=== PATIENT | female | born 1995 | race Caucasian/White ===

== ENCOUNTER 2017-01-13 00:41 | Emergency (ER) | payer OTHER ==
[~2017-01-13] VITALS: Ht 167.6 cm; Wt 89.4 kg
[2017-01-13 00:45] VITALS: TEMP 36.6; Ht 167.6 cm; Wt 89.4 kg
[2017-01-13] MEDS ORDERED: TRAMADOL HCL 50 MG TAB PO STA (01:14)
[2017-01-13] MEDS ORDERED: AMOXICILLIN 250 MG CAP PO STA (01:14)
[2017-01-13] MEDS ORDERED: AMOX500C3 PO (01:17)
[2017-01-13] MEDS ORDERED: TRAM-10 PO (01:17)
--- NOTE | 2017-01-13 01:25 | EMERGENCY ROOM VISIT NOTE ---
History First contact with patient: 00:44 Chief Complaint: DENTAL PAIN Stated Complaint: TOOTH INFECTION, SOB, TINGLING FACE Nursing Triage Summary: pt reports "I was at [facility] recently and I am pretty sure I have an infected tooth. They gave me zofran because I have been throwing up my morning meds. I havent ate since tuesday." pt reports that she was not given anything for her tooth. History of Present Illness The patient is a 21 year old female who presents to the Emergency Room with complaints of dental pain for the past few days has not seen a dentist in quite sometime. Patient discussed pain as aching, ranging in severity 6 out of 10 worse with chewing better with rest. Occasionally radiates up to her ear and jaw line. Patient denies chest pain, fevers, facial swelling, sore throat, dysphagia, neck stiffness, IV drug abuse. Review of Systems See HPI for pertinent positives & negatives. A total of 10 systems reviewed and were otherwise negative. Past Medical/Surgical History Graves' disease, GERD Social History Smoking Status: Never Smoker Smokeless Tobacco Use: No Alcohol Use: none Drug Use: none Marital Status: in relationship Current/Historical Medications Scheduled Amoxicillin (Amoxil), 500 MG PO TID Scheduled PRN Tramadol (Ultram), 1 TAB PO Q4H PRN for Pain Physical Exam Vital Signs Date Time Temp Pulse Resp B/P (MAP) Pulse Ox O2 Delivery O2 Flow Rate FiO2 01/13/17 00:45 36.6 78 20 122/81 100 Room Air Physical Exam VITALS: Vitals are noted on the nurse's note and reviewed by myself. Vital signs stable. GENERAL: White female, in no acute distress, nondiaphoretic, well-developed well -nourished. SKIN: The skin was without rashes, erythema, edema, or bruising. There is no tenting of the skin. Capillary reflex less than 2 seconds. HEAD: Normocephalic atraumatic. EARS: External auditory canals clear, tympanic membranes pearly rodriguez without erythema or effusion bilaterally. EYES: Pupils equal round and reactive to light and accommodation. Conjunctivae without injection, sclerae without icterus. Extraocular movements intact. NOSE: Patent, turbinates without inflammation or discharge. No sinus tenderness. MOUTH: Mucous membranes moist. Pharynx without erythema or exudate. Uvula midline. Airway patent. Tongue does not deviate. No Zack angina Dental exam: Extensive plaque buildup, right lower first molar with extensive dental decay with no palpable abscess, overall dental hygiene fair NECK: Supple without nuchal rigidity. No lymphadenopathy. Cervical spine is nontender. No JVD. HEART: Regular rate and rhythm without murmurs gallops or rubs. LUNGS: Clear to auscultation bilaterally without wheezes, rales or rhonchi. No dullness to percussion. No retractions or accessory muscle use. ABDOMEN: Positive bowel sounds x 4. Normal tympanic percussion. Soft, nontender, without masses or organomegaly. Gorman sign negative. No guarding or rebound tenderness. MUSCULOSKELETAL: No muscle atrophy, erythema, or edema noted. NEURO: Patient was alert and oriented to person place and time. Normal sensation to light and sharp touch. No focal neurological deficits. Medical Decision & Procedures ED Course Prior records reviewed and summarized as above. Triage Nursing notes reviewed. Additional history obtained from girlfriend The patient's history was concerning for dental pain Differential diagnosis: Etiologies such as cellulitis, abscess, Zack angina, cavity, gingivitis, as well as others were entertained.. Physical examination: The physical examination was consistent with dental pain and dental caries ER treatment provided: Amoxicillin, Ultram On reassessment the patient felt better. Diagnostics interpreted by me: Deferred This appears to be isolated dental pain and dental caries. Patient was counseled on proper dental hygiene. She is strongly encouraged to see a dentist as soon as possible to consider care for her ongoing dental problems. She is advised to take medications as directed and to follow-up with the dentist or family care in a few days or here in the ER sooner for facial pain, fevers, neck stiffness, worsening signs or symptoms or as needed. Patient no signs of airway, or mass. No signs of Zack angina.. By the evaluation outlined above emergent etiologies such as abscess, Zack angina as well as others were deemed relatively unlikely. The pt informed about the findings as listed above. All questions were answered and pleased with the treatment. Return instructions were outlined and the patient was discharged in stable condition. Outpatient prescription management: Amoxicillin, Ultram Referral: The patient was referred dentist for follow-up in 2 to 3 days for a recheck of the current condition. Medical Decision As above [place] Drug Monitoring Program Search Results: patient reviewed within database, no issues identified Medication Reconcilliation Current Medication List: was personally reviewed by me Blood Pressure Screening Patient's blood pressure: Normal blood pressure Impression Primary Impression: Dental caries Additional Impression: Tooth pain with chewing Departure Information Dispostion Home / Self-Care Condition GOOD Prescriptions Tramadol (Ultram) 50 Mg Tab 1 TAB PO Q4H Y for Pain, #10 TAB For Initial Treatment Prov: María Loco PA-C 01/13/17 Amoxicillin (AMOXIL) 500 Mg Cap 500 MG PO TID for 10 Days, #30 CAP Prov: María Loco PA-C 01/13/17 Referrals No Doctor, Assigned (PCP) Forms HOME CARE DOCUMENTATION FORM, IMPORTANT VISIT INFORMATION Patient Instructions My [facility], ED Cavity Dental Problem Qualifiers
[2017-01-13 01:32] VITALS: BP 123/75; PULSE 78; O2SAT 100
[2017-01-14] MEDS ORDERED: PROP20TA67 PO (01:54)
[2017-01-14] MEDS ORDERED: METH10TA6 PO (01:57)
[2017-01-14] MEDS ORDERED: OMEP40CA41 PO (02:00)
[2017-01-14] MEDS ORDERED: MONT1TAB3 PO (02:01)
[2017-01-14] MEDS ORDERED: CLR10 PO (02:01)
[2017-01-14] MEDS ORDERED: ASTN NAE (02:02)
[2017-01-14] MEDS ORDERED: AZITTAB PO (17:13)
[2017-01-14] MEDS ORDERED: ONDA4TAB10 SL (17:13)
== END 2017-01-13 01:33 | disposition home or self-care (01) ==
LOC: C.EDB 00:44 → C.EDA 01:33
DX: K02.9 Dental caries, unspecified (principal); K08.89 Other specified disorders of teeth and supporting structures; K21.9 Gastro-esophageal reflux disease without esophagitis; E05.00 Thyrotoxicosis with diffuse goiter without thyrotoxic crisis or storm

== ENCOUNTER 2017-01-14 14:51 | Emergency (ER) | payer OTHER ==
[~2017-01-14] VITALS: Ht 167.6 cm; Wt 89.4 kg
[~2017-01-14 14:51] MED LIST: AMOX500C3 PO; ASTN NAE; CLR10 PO; METH10TA6 PO; MONT1TAB3 PO; OMEP40CA41 PO; PROP20TA67 PO; TRAM-10 PO
[2017-01-14 14:56] VITALS: TEMP 36.4; Ht 167.6 cm; Wt 89.4 kg
[2017-01-14] MEDS ORDERED: ONDANSETRON INJ 2 MG/ML 2 ML VIAL IV STA (15:45)
[2017-01-14] MEDS ORDERED: SODIUM CHLORIDE 0.9% 1000ML 1,000 ML IV STA (15:45)
[2017-01-14 16:29] LABS: BASO % 0.5 %; BASO ABS # 0.03 K/uL (0-0.2); COMPLETE YES; EOS % 2.7 %; HEMATOCRIT 41.5 % (37-47); IG% 0.2 %; LYMPH % 25.1 %; LYMPH ABS # 1.59 K/uL (1.2-3.4); MEAN CELL VOLUME 79.3 fL (80-100); MONO % 7.3 %; NEUT % 64.2 %; PLATELET COUNT 389 K/uL (130-400); RED BLOOD COUNT 5.23 M/uL (4.2-5.4); WHITE BLOOD COUNT 6.33 K/uL (4.8-10.8)
[2017-01-14 16:38] LABS: PARTIAL THROMBOPLASTIN RATIO 1.1; PROTHROMBIN TIME (PATIENT) 10.7 SECONDS (9.0-12.0)
--- NOTE | 2017-01-14 16:38 | DIAGNOSTIC IMAGING REPORT ---
SINUSES-MAXILLOFACIAL W/O CT DOSE: 549.39 mGy.cm HISTORY: Pain persistent head congestion TECHNIQUE: Multiaxial CT images of the paranasal sinuses were performed and reformatted in the coronal plane without the use of contrast. A dose lowering technique was utilized adhering to the principles of ALARA. COMPARISON: None. FINDINGS: The frontal sinuses are clear. Mild mucosal thickening right maxillary sinus. Soft tissue occlusion right ostiomeatal unit. Left maxillary sinus is clear. Left ostiomeatal unit is patent. Minimal mucosal thickening in the ethmoids. Sphenoid sinuses are clear. Moderate hyperplastic changes the nasal turbinates bilaterally. No evidence for bony destructive process. The orbital margins are intact. The mastoid air cells are clear. The 10th The nasal septum is midline. The orbits are unremarkable. IMPRESSION: 1. Mild mucosal thickening right maxillary sinus.. 2. Soft tissue occlusion right ostiomeatal unit. 3. Mild hypertrophic change of the nasal turbinates. The above report was generated using voice recognition software. It may contain grammatical, syntax or spelling errors. Electronically signed by: Bridger Manrique M.D. 01/14/2017 4:37 PM Dictated Date/Time: 01/14/2017 4:35 PM
[2017-01-14 16:47] LABS: BUN/CREATININE RATIO 8.6 (10-20); CALCIUM 9.3 mg/dl (8.5-10.1); CREATININE 0.66 mg/dl (0.60-1.20); POTASSIUM 3.5 mmol/L (3.5-5.1)
--- NOTE | 2017-01-14 16:50 | DIAGNOSTIC IMAGING REPORT ---
CHEST 2 VIEWS ROUTINE CLINICAL HISTORY: sob dyspnea COMPARISON STUDY: No previous studies for comparison. FINDINGS: The bones soft tissues and hemidiaphragms are normal. The cardiomediastinal silhouette is normal. The lungs are clear. The pulmonary vasculature is normal. IMPRESSION: Negative chest. The above report was generated using voice recognition software. It may contain grammatical, syntax or spelling errors. Electronically signed by: Bridger Manrique M.D. 01/14/2017 4:48 PM Dictated Date/Time: 01/14/2017 4:48 PM
[2017-01-14] MEDS ORDERED: AZITTAB PO (17:13)
[2017-01-14] MEDS ORDERED: ONDA4TAB10 SL (17:13)
--- NOTE | 2017-01-14 17:15 | EMERGENCY ROOM VISIT NOTE ---
History First contact with patient: 15:26 Chief Complaint: DIZZY Stated Complaint: DIZZY,WALTERS,SOB,NAUSEOUS,MOUTH HURTS Nursing Triage Summary: Patient c/o SOB, N/V, and dizziness. Patient was seen 2 days ago and put on antibiotics and tramadol for tooth. History of Present Illness The patient is a 21 year old female who presents to the Emergency Room with complaints of chest tightness. The patient states that this has been intermittent for several months. She also admits to persistent head congestion and postnasal drainage. She states when she gets up in the morning she is very nauseated due to the drainage. She also feels off balance. She states that she has seen her PCP for her symptoms and was told she has allergies and was placed on Singulair, Claritin and Flonase. This was approximately 1-2 months ago. The patient states she has not noticed a huge difference in her symptoms. She was also seen at [facility] approximately 10 days ago and was told she had pneumonia. She was placed on Ceftin. She states that she did not tolerate the Ceftin and therefore she quit taking it. She was seen again at [facility] 2 days ago and they told her she no longer had pneumonia. She was seen here yesterday for right lower molar dental pain and nausea. She was placed on amoxicillin and tramadol. The patient denies any fever, sore throat, ear pain, abdominal pain. She states she has had decreased appetite and not eating very much. She also states that she has kept in contact with her family doctor about her symptoms. Review of Systems 10 system review was performed and was negative unless stated otherwise history of present illness. Social History Smoking Status: Never Smoker Alcohol Use: none Drug Use: none Marital Status: in relationship Housing Status: lives with significant other Occupation Status: employed Current/Historical Medications Scheduled Amoxicillin (Amoxil), 500 MG PO TID Azelastine Hcl (Astelin Nasal [place]), 2 SPRAYS TOMY BID Loratadine (Claritin), 10 MG PO DAILY Methimazole (Tapazole), 20 MG PO DAILY Montelukast Sodium (Singulair), 10 MG PO DAILY Omeprazole (Prilosec), 40 MG PO DAILY Propranolol (Inderal), 40 MG PO TID Scheduled PRN Tramadol (Ultram), 1 TAB PO Q4H PRN for Pain Allergies Coded Allergies: No Known Allergies (Unverified , 01/13/17) Physical Exam Vital Signs Date Time Temp Pulse Resp B/P (MAP) Pulse Ox O2 Delivery O2 Flow Rate FiO2 01/14/17 17:05 85 18 123/60 100 Room Air 01/14/17 14:56 36.4 103 18 127/80 97 Room Air Physical Exam PHYSICAL EXAM: Vital Signs were reviewed: Reviewed Nurse's notes and agree. Oxygen saturation is 97 % on room air which is normal . GENERAL: 21-year-old female appears in no acute distress. MENTAL STATUS: Alert, oriented, coherent. EARS: Canals clear. TMs good light reflex, no erythema or fluid level noted. NOSE: Nasal mucosa with moderate erythema engorgement. Right greater than left PHARYNX: No erythema, no edema noted. No exudate noted. Airway is adequate. SINUSES: Tenderness palpation over the maxillary and frontal sinuses. NECK: Supple, non-tender. No lymphadenopathy noted. LUNGS: Clear to auscultation without wheezes rales or rhonchi. CARDIAC: Regular rate and rhythm without murmur. SKIN: No rashes noted. Medical Decision & Procedures ER Provider Diagnostic Interpretation: SINUSES-MAXILLOFACIAL W/O CT DOSE: 549.39 mGy.cm HISTORY: Pain persistent head congestion TECHNIQUE: Multiaxial CT images of the paranasal sinuses were performed and reformatted in the coronal plane without the use of contrast. A dose lowering technique was utilized adhering to the principles of ALARA. COMPARISON: None. FINDINGS: The frontal sinuses are clear. Mild mucosal thickening right maxillary sinus. Soft tissue occlusion right ostiomeatal unit. Left maxillary sinus is clear. Left ostiomeatal unit is patent. Minimal mucosal thickening in the ethmoids. Sphenoid sinuses are clear. Moderate hyperplastic changes the nasal turbinates bilaterally. No evidence for bony destructive process. The orbital margins are intact. The mastoid air cells are clear. The 10th The nasal septum is midline. The orbits are unremarkable. IMPRESSION: 1. Mild mucosal thickening right maxillary sinus.. 2. Soft tissue occlusion right ostiomeatal unit. 3. Mild hypertrophic change of the nasal turbinates. The above report was generated using voice recognition software. It may contain grammatical, syntax or spelling errors. Electronically signed by: Bridger Manrique M.D. 01/14/2017 4:37 PM CHEST 2 VIEWS ROUTINE CLINICAL HISTORY: sob dyspnea COMPARISON STUDY: No previous studies for comparison. FINDINGS: The bones soft tissues and hemidiaphragms are normal. The cardiomediastinal silhouette is normal. The lungs are clear. The pulmonary vasculature is normal. IMPRESSION: Negative chest. The above report was generated using voice recognition software. It may contain grammatical, syntax or spelling errors. Electronically signed by: Bridger Manrique M.D. 01/14/2017 4:48 PM Laboratory Results 01/14/17 16:10 Red Blood Count 5.23, Mean Corpuscular Volume 79.3, Mean Corpuscular Hemoglobin 27.0, Mean Corpuscular Hemoglobin Concent 34.0, Mean Platelet Volume 10.0, Neutrophils (%) (Auto) 64.2, Lymphocytes (%) (Auto) 25.1, Monocytes (%) (Auto) 7.3, Eosinophils (%) (Auto) 2.7, Basophils (%) (Auto) 0.5, Neutrophils # (Auto) 4.07, Lymphocytes # (Auto) 1.59, Monocytes # (Auto) 0.46, Eosinophils # (Auto) 0.17, Basophils # (Auto) 0.03 01/14/17 16:10 Test 01/14/17 16:10 01/14/17 16:17 White Blood Count 6.33 K/uL (4.8-10.8) Red Blood Count 5.23 M/uL (4.2-5.4) Hemoglobin 14.1 g/dL (12.0-16.0) Hematocrit 41.5 % (37-47) Mean Corpuscular Volume 79.3 fL (80-100) Mean Corpuscular Hemoglobin 27.0 pg (25-34) Mean Corpuscular Hemoglobin Concent 34.0 g/dl (32-36) Platelet Count 389 K/uL (130-400) Mean Platelet Volume 10.0 fL (7.4-10.4) Neutrophils (%) (Auto) 64.2 % Lymphocytes (%) (Auto) 25.1 % Monocytes (%) (Auto) 7.3 % Eosinophils (%) (Auto) 2.7 % Basophils (%) (Auto) 0.5 % Neutrophils # (Auto) 4.07 K/uL (1.4-6.5) Lymphocytes # (Auto) 1.59 K/uL (1.2-3.4) Monocytes # (Auto) 0.46 K/uL (0.11-0.59) Eosinophils # (Auto) 0.17 K/uL (0-0.5) Basophils # (Auto) 0.03 K/uL (0-0.2) RDW Standard Deviation 34.3 fL (36.4-46.3) RDW Coefficient of Variation 11.9 % (11.5-14.5) Immature Granulocyte % (Auto) 0.2 % Immature Granulocyte # (Auto) 0.01 K/uL (0.00-0.02) Prothrombin Time 10.7 SECONDS (9.0-12.0) Prothromb Time International Ratio 1.0 (0.9-1.1) Activated Partial Thromboplast Time 28.0 SECONDS (21.0-31.0) Partial Thromboplastin Ratio 1.1 Anion Gap 6.0 mmol/L (3-11) Est Creatinine Clear Calc Drug Dose 149.3 ml/min Estimated GFR () 144.3 Estimated GFR (Non- 124.5 BUN/Creatinine Ratio 8.6 (10-20) Calcium Level 9.3 mg/dl (8.5-10.1) Total Bilirubin 0.7 mg/dl (0.2-1) Direct Bilirubin 0.1 mg/dl (0-0.2) Aspartate Amino Transf (AST/SGOT) 20 U/L (15-37) Alanine Aminotransferase (ALT/SGPT) 44 U/L (12-78) Alkaline Phosphatase 74 U/L (45-117) Total Protein 7.6 gm/dl (6.4-8.2) Albumin 3.7 gm/dl (3.4-5.0) Lipase 93 U/L (73-393) Bedside D-Dimer 193 ng/mlFEU (0-450) Medications Administered Medications (Trade) Dose Ordered Sig/Kia Route Start Time Stop Time Status Last Admin Dose Admin Sodium Chloride 1,000 ml @ 999 mls/hr Q1H1M STAT IV 01/14/17 15:45 01/14/17 16:45 DC 01/14/17 16:11 999 MLS/HR Ondansetron HCl (Zofran Inj) 4 mg NOW STAT IV 01/14/17 15:45 01/14/17 15:48 DC 01/14/17 16:11 4 MG ECG Indication: SOB/dyspnea Rhythm: normal sinus Findings: no acute ischemic change ED Course The patient was evaluated. IV access was obtained. The patient was given 1 L normal saline wide-open. CBC and differential, coags, complete metabolic profile, pointing care d-dimer was ordered. The patient was given Zofran 4 mg IV push for nausea. Chest x-ray was ordered and interpreted by the radiologist and myself as above without any acute findings. CT of the sinuses was ordered interpreted by the radiologist as above with right maxillary thickening and soft tissue occlusion of the right ostiomeatal opening. EKG had already been ordered and protocol and was reviewed without any acute findings. Labs are reviewed and were unremarkable. Pointing care d-dimer was within normal range. The patient was informed of all findings. The patient was discharged home in stable condition. Medical Decision Differential diagnosis include acute sinusitis, eustachian tube dysfunction, pneumonia, allergic rhinitis, PE, reactive airway disease Impression Primary Impression: Acute maxillary sinusitis Additional Impressions: occlusion right maxillary ostiomeatal opening Nausea Eustachian tube dysfunction Departure Information Dispostion Home / Self-Care Condition GOOD Prescriptions Ondasetron Odt (ZOFRAN ODT) 4 Mg Tab 4 MG SL Q6H for Nausea, #14 TAB Prov: Lexi Manrique PA-C 01/14/17 Azithromycin (ZITHROMAX Z-ANDER) 250 Mg Tab 0 PO UD, #1 PKT Prov: Lexi Manrique PA-C 01/14/17 Referrals No Doctor, Assigned (PCP) Forms HOME CARE DOCUMENTATION FORM, IMPORTANT VISIT INFORMATION Patient Instructions ED Sinusitis Abx Tx, My [facility] Additional Instructions Take Zofran as needed for nausea. Discontinue amoxicillin. Take Z-Ander as prescribed. Continue all allergy medications as prescribed by your PCP. Also recommend that first thing in the morning before you get up either some crackers or dry toast to absorb sinus drainage once you stand up. Appointment with ENT for further evaluation and treatment. Problem Qualifiers Primary Impression: Acute maxillary sinusitis Recurrence: not specified as recurrent Qualified Codes: J01.00 - Acute maxillary sinusitis, unspecified Additional Impressions: Eustachian tube dysfunction Laterality: unspecified laterality Qualified Codes: H69.80 - Other specified disorders of Eustachian tube, unspecified ear
[2017-01-14 18:27] VITALS: BP 149/68; PULSE 84; O2SAT 100
== END 2017-01-14 18:27 | disposition home or self-care (01) ==
LOC: C.EDB 14:52
DX: J01.00 Acute maxillary sinusitis, unspecified (principal); R11.0 Nausea; H69.80 Other specified disorders of Eustachian tube, unspecified ear; Z87.01 Personal history of pneumonia (recurrent); Z79.899 Other long term (current) drug therapy

== ENCOUNTER 2017-05-14 14:00 | Emergency (ER) | payer OTHER ==
[~2017-05-14] VITALS: Ht 167.6 cm; Wt 98.8 kg
[~2017-05-14 14:00] MED LIST changes: -AMOX500C3 PO; +ONDA4TAB10 SL
[2017-05-14 14:06] VITALS: TEMP 36.9; Ht 167.6 cm; Wt 98.8 kg
[2017-05-14] MEDS ORDERED: GI COCKTAIL PO STA (14:26)
[2017-05-14] MEDS ORDERED: ALUMINUM/MAGNESIUM SUSP 30 ML UDC ONE (14:34)
[2017-05-14] MEDS ORDERED: LIDOCAINE HCL 2% VISC SOLN 20 ML UDC ONE (14:34)
[2017-05-14] MEDS ORDERED: METH-589 PO (14:37)
[2017-05-14 14:44] LABS: BASO % 0.5 %; BASO ABS # 0.04 K/uL (0-0.2); EOS % 0.7 %; EOS ABS # 0.05 K/uL (0-0.5); HEMATOCRIT 42.1 % (37-47); HEMOGLOBIN 14.5 g/dL (12.0-16.0); IG# 0.02 K/uL (0.00-0.02); LYMPH % 29.8 %; LYMPH ABS # 2.22 K/uL (1.2-3.4); MEAN CELL VOLUME 81.4 fL (80-100); MEAN CORPUSCULAR HGB CONC 34.4 g/dl (32-36); MEAN PLATELET VOLUME 10.1 fL (7.4-10.4); MONO % 6.7 %; NEUT ABS # 4.62 K/uL (1.4-6.5); PLATELET COUNT 362 K/uL (130-400); RED CELL DISTRIBUTION WIDTH CV 13.1 % (11.5-14.5); RED CELL DISTRIBUTION WIDTH SD 39.2 fL (36.4-46.3); WHITE BLOOD COUNT 7.45 K/uL (4.8-10.8)
--- NOTE | 2017-05-14 14:47 | DIAGNOSTIC IMAGING REPORT ---
CHEST ONE VIEW PORTABLE CLINICAL HISTORY: Atypical chest pain COMPARISON STUDY: 01/14/2017 FINDINGS: The cardiac and mediastinal contours are normal. There is no evidence of focal pulmonary consolidation. There is no evidence of failure. No pleural effusions are visualized.[ No pneumothorax is visualized. IMPRESSION: No active disease in the chest. Electronically signed by: Jewel Nash M.D. 05/14/2017 2:46 PM Dictated Date/Time: 05/14/2017 2:46 PM
[2017-05-14 14:55] LABS: PTT PATIENT 27.8 SECONDS (21.0-31.0)
[2017-05-14 15:00] LABS: ALT/SGPT 19 U/L (12-78); BLOOD UREA NITROGEN 8 mg/dl (7-18); CALCIUM 8.6 mg/dl (8.5-10.1); CARBON DIOXIDE 25 mmol/L (21-32); CREATININE 0.65 mg/dl (0.60-1.20); GLUCOSE 80 mg/dl (70-99); LIPASE 136 U/L (73-393); POTASSIUM 3.2 mmol/L (3.5-5.1); SODIUM 139 mmol/L (136-145)
[2017-05-14 15:10] LABS: ALKALINE PHOSPHATASE 71 U/L (45-117); AST/SGOT 14 U/L (15-37); CKMB < 0.5 ng/ml (0.5-3.6); TOTAL PROTEIN 7.9 gm/dl (6.4-8.2)
[2017-05-14] MEDS ORDERED: ZNTT/150 PO (15:58)
--- NOTE | 2017-05-14 16:00 | EMERGENCY ROOM VISIT NOTE ---
History First contact with patient: 14:18 Chief Complaint: CONGESTION Stated Complaint: CHEST PAIN, GAS, MUCUS Nursing Triage Summary: patient with history of reflux and is on medication for that she has been having off and on epigastric pain and burning and feeling as if she needs to burp and is unable to do so. states she also has allergies and is on mediation for this with congestions and musuc and making her cough with increase pain in the chest. History of Present Illness The patient is a 21 year old female who presents to the Emergency Room via private vehicle with complaints of "chest pain, gas, mucus". She has been referred by [facility]. The patient states that she has severe reflux of which is treated with omeprazole. She states that unfortunately for some time now she has had sinus drainage, congestion and feels as though her throat is closing at times. She also feels a sensation in her chest as if she has to burp but cannot. She also notes pain in the left anterior chest at times. She denies any shortness of breath. She states that the chest and will occur at random times. It is not worse after eating. She notes no pain at present just a feeling as though she has to burp. She denies chance of . Review of Systems A complete 10-point Review of Systems was discussed with the patient, with pertinent positives and negatives listed in the History of Present Illness. All remaining Review of Systems questions can be considered negative unless otherwise specified. Past Medical/Surgical History Acid reflux Family History Diabetes, high blood pressure, cancer, thyroid disease Social History Smoking Status: Never Smoker Alcohol Use: none Drug Use: none Marital Status: in relationship Occupation Status: employed Current/Historical Medications Scheduled Azelastine Hcl (Astelin Nasal [place]), 2 SPRAYS TOMY BID Loratadine (Claritin), 10 MG PO DAILY Methimazole (Methimazole ), 5 MG PO DAILY Montelukast Sodium (Singulair), 10 MG PO DAILY Omeprazole (Prilosec), 40 MG PO DAILY Ranitidine (Zantac), 1 TAB PO BID Physical Exam Vital Signs Date Time Temp Pulse Resp B/P (MAP) Pulse Ox O2 Delivery O2 Flow Rate FiO2 05/14/17 16:30 75 20 135/77 98 05/14/17 14:54 86 05/14/17 14:52 Room Air 05/14/17 14:52 87 18 150/81 100 Room Air 05/14/17 14:10 100 Room Air 05/14/17 14:06 36.9 98 20 149/82 100 Room Air Physical Exam VITAL SIGNS - Vital signs and nursing notes were reviewed. Stable. GENERAL -21-year-old female appearing her stated age who is in no acute distress. Nontoxic in appearance. Communicates well with provider and answers questions appropriately. SKIN - Without rashes. No petechial rashes. HEAD - NC/AT. EYES - PERRL with EOMI bilaterally. Sclera anicteric. EARS - No deformities of external structures noted on gross examination bilaterally. No pain elicited with palpation of the tragus bilaterally. External auditory canals without discharge or otorrhea. Tympanic membranes pearly rodriguez without retraction or bulging. No fluid or purulent material visualized behind the TM. Handle of malleus, umbo, cone of light, pars tensa/ flaccid all easily visualized. NOSE - Midline and without cyanosis. No epistaxis or purulent drainage noted. Septum midline without deviation or septal hematoma noted. MOUTH/OROPHARYNX - Without perioral cyanosis. Buccal mucosa pink and moist and without leukoplakia. Tongue midline with equal elevation of palate bilaterally. No tonsillar hypertrophy, erythema, or exudates noted. Fair dentition noted. NECK -no nuchal rigidity. LUNGS - Chest wall symmetric without accessory muscle use, intercostals retractions, or central cyanosis. Normal vesicular breath sounds CTA B/L. No wheezes, rales, or rhonchi appreciated. CARDIAC - RRR with S1/S2. No murmur, rubs, or gallops appreciated. ABDOMEN - Abdominal contour normal without pulsations or visible masses. BS normoactive all four quadrants. No tenderness, palpable masses, hepatosplenomegaly, or ascites noted. Medical Decision & Procedures ER Provider Diagnostic Interpretation: CHEST ONE VIEW PORTABLE CLINICAL HISTORY: Atypical chest pain COMPARISON STUDY: 01/14/2017 FINDINGS: The cardiac and mediastinal contours are normal. There is no evidence of focal pulmonary consolidation. There is no evidence of failure. No pleural effusions are visualized.[ No pneumothorax is visualized. IMPRESSION: No active disease in the chest. Electronically signed by: Jewel Nash M.D. 05/14/2017 2:46 PM Dictated Date/Time: 05/14/2017 2:46 PM Laboratory Results 05/14/17 14:30 Red Blood Count 5.17, Mean Corpuscular Volume 81.4, Mean Corpuscular Hemoglobin 28.0, Mean Corpuscular Hemoglobin Concent 34.4, Mean Platelet Volume 10.1, Neutrophils (%) (Auto) 62.0, Lymphocytes (%) (Auto) 29.8, Monocytes (%) (Auto) 6.7, Eosinophils (%) (Auto) 0.7, Basophils (%) (Auto) 0.5, Neutrophils # (Auto) 4.62, Lymphocytes # (Auto) 2.22, Monocytes # (Auto) 0.50, Eosinophils # (Auto) 0.05, Basophils # (Auto) 0.04 05/14/17 14:30 Test 05/14/17 14:30 White Blood Count 7.45 K/uL (4.8-10.8) Red Blood Count 5.17 M/uL (4.2-5.4) Hemoglobin 14.5 g/dL (12.0-16.0) Hematocrit 42.1 % (37-47) Mean Corpuscular Volume 81.4 fL (80-100) Mean Corpuscular Hemoglobin 28.0 pg (25-34) Mean Corpuscular Hemoglobin Concent 34.4 g/dl (32-36) Platelet Count 362 K/uL (130-400) Mean Platelet Volume 10.1 fL (7.4-10.4) Neutrophils (%) (Auto) 62.0 % Lymphocytes (%) (Auto) 29.8 % Monocytes (%) (Auto) 6.7 % Eosinophils (%) (Auto) 0.7 % Basophils (%) (Auto) 0.5 % Neutrophils # (Auto) 4.62 K/uL (1.4-6.5) Lymphocytes # (Auto) 2.22 K/uL (1.2-3.4) Monocytes # (Auto) 0.50 K/uL (0.11-0.59) Eosinophils # (Auto) 0.05 K/uL (0-0.5) Basophils # (Auto) 0.04 K/uL (0-0.2) RDW Standard Deviation 39.2 fL (36.4-46.3) RDW Coefficient of Variation 13.1 % (11.5-14.5) Immature Granulocyte % (Auto) 0.3 % Immature Granulocyte # (Auto) 0.02 K/uL (0.00-0.02) Prothrombin Time 10.7 SECONDS (9.0-12.0) Prothromb Time International Ratio 1.0 (0.9-1.1) Activated Partial Thromboplast Time 27.8 SECONDS (21.0-31.0) Partial Thromboplastin Ratio 1.1 D-Dimer < 190 ug/L FEU (0-500) Anion Gap 8.0 mmol/L (3-11) Est Creatinine Clear Calc Drug Dose 159.5 ml/min Estimated GFR () 145.0 Estimated GFR (Non- 125.1 BUN/Creatinine Ratio 12.4 (10-20) Calcium Level 8.6 mg/dl (8.5-10.1) Total Bilirubin 0.5 mg/dl (0.2-1) Aspartate Amino Transf (AST/SGOT) 14 U/L (15-37) Alanine Aminotransferase (ALT/SGPT) 19 U/L (12-78) Alkaline Phosphatase 71 U/L (45-117) Total Creatine Kinase 142 U/L (26-192) Creatine Kinase MB < 0.5 ng/ml (0.5-3.6) Creatine Kinase MB Ratio (0-3.0) Troponin I < 0.015 ng/ml (0-0.045) C-Reactive Protein < 0.29 mg/dl (0-0.29) Total Protein 7.9 gm/dl (6.4-8.2) Albumin 4.0 gm/dl (3.4-5.0) Globulin 3.9 gm/dl (2.5-4.0) Albumin/Globulin Ratio 1.0 (0.9-2) Lipase 136 U/L (73-393) Thyroid Stimulating Hormone (TSH) 1.840 uIu/ml (0.300-4.500) Medications Administered Medications (Trade) Dose Ordered Sig/Kia Route Start Time Stop Time Status Last Admin Dose Admin Al Hydroxide/Mg Hydroxide (Maalox Susp) 30 ml STK-MED ONCE .ROUTE 05/14/17 14:34 05/14/17 14:35 DC 05/14/17 14:37 30 ML Lidocaine HCl (Viscous Lidocaine 2% Soln) 20 ml STK-MED ONCE .ROUTE 05/14/17 14:34 05/14/17 14:35 DC 05/14/17 14:37 20 ML Medical Decision Patient was seen and evaluated as above. She was just was today referred by [facility] for the sensation of having to burp, questionable chest pain, and feelings of her throat is closing. She is nontoxic on exam. The airway is patent. Chest pain a producible with palpation of the left anterior chest wall. I suspect she likely has GERD/acid reflux. Bedside EKG was obtained and reveals normal sinus rhythm, there is no ectopy or ischemic change noted. D-dimer normal. Troponin normal. No leukocytosis or anemia. No concerning metabolic process. Potassium low. She was informed upon dietary supplementation. She is to follow with her family doctor. She is also potentially to follow with GI. I will also recommend in addition of an H2 receptor shayy such as Zantac/ranitidine. This is in association with her already good regimen of omeprazole. She was given a GI cocktail here which did take away the sensation that she had to burp. This further correlates with her suspicion of having GERD/reflux. At this time she appears stable for outpatient management. She was educated upon management, educated upon worrisome symptoms in which to return, had questions about discharge, and was discharged home in good condition. In evaluation treatment this patient the following differential diagnoses were taken: TX, PE, GERD, acid reflux, duodenal ulcer, pericarditis, costochondritis , among others. Impression Primary Impression: Reflux esophagitis Additional Impression: Hypokalemia Departure Information Dispostion Home / Self-Care Condition GOOD Prescriptions Ranitidine (Zantac) 150 Mg Tab 1 TAB PO BID for 30 Days, #60 TAB 3 Refills Prov: Kai Lynn PA-C 05/14/17 Referrals No Doctor, Assigned (PCP) Theo Diaz, DO Patient Instructions My [facility] Additional Instructions You were seen in the emergency department for your chest discomfort and congestion. Your chest x-ray and EKG did not reveal any emergent abnormality's. Your blood pressure today look good. You did have a slight low potassium level. I suspect that you aren't experiencing reflux. I recommend starting ranitidine 150 mg every 12 hours. I sent a prescription however you can also purchase this [id number] instead. Please follow-up with GI. I enlisted Dr. Diaz as a possible person to call to follow-up with. Please also follow-up with your family doctor. Please return with any new/concerning symptoms. If you begin with exertional chest pain please return for further evaluation and management. Problem Qualifiers
[2017-05-14 16:30] VITALS: BP 135/77; PULSE 75; O2SAT 98
== END 2017-05-14 16:33 | disposition home or self-care (01) ==
LOC: C.EDB 14:02 → C.EDD 16:33
DX: K21.0 Gastro-esophageal reflux disease with esophagitis (principal); E87.6 Hypokalemia; Z79.899 Other long term (current) drug therapy; Z83.3 Family history of diabetes mellitus; Z82.49 Family history of ischemic heart disease and other diseases of the circulatory system; Z80.9 Family history of malignant neoplasm, unspecified; Z85.850 Personal history of malignant neoplasm of thyroid